=== PATIENT | male | born 1990 | race African-American/Black ===

== ENCOUNTER 2017-08-13 08:18 | Emergency (ER) | payer SELFPAY ==
[2017-08-13] MEDS: IBUPROFEN 800 MG TABLET. PO (08:56)
[2017-08-13] MEDS: HYDROcodone/APAP 5/325MG 1 TAB TABLET PO (08:56)
== END 2017-08-13 09:34 | disposition home or self-care (01) ==
LOC: ER 08:18
DX: S39.012A Strain of muscle, fascia and tendon of lower back, initial encounter (principal); Z79.891 Long term (current) use of opiate analgesic; Z79.1 Long term (current) use of non-steroidal anti-inflammatories (NSAID); X58.XXXA Exposure to other specified factors, initial encounter; Y93.89 Activity, other specified; Y92.89 Other specified places as the place of occurrence of the external cause; Y99.8 Other external cause status
CPT/HCPCS: 72100; 99284

== ENCOUNTER 2018-01-04 11:52 | Emergency (ER) | payer SELFPAY ==
[~2018-01-04] VITALS: Ht 185.4 cm; Wt 86.2 kg
[~2018-01-04 11:52] MED LIST: HYDR-971 PO; IBUP-1060 PO
[2018-01-04 12:25] VITALS: BP 121/75
[2018-01-04] MEDS ORDERED: LIDOCAINE 1% PF 2 ML VIAL. ONE (13:52)
--- NOTE | 2018-01-04 14:54 | PHYS DOC ---
Past Medical History Past Medical History: No Pertinent History Past Surgical History: No Surgical History Alcohol Use: Occasionally Drug Use: None Adult General Chief Complaint Chief Complaint: LACERATION/AVULSION HPI HPI Patient is a 27 year old AA male who presents to the ER with complaints of a laceration between his first and second digits of his right hand from a piece of metal he was trying to bend. PT denies any pain, numbness, tingling, weakness , or decreased ROM of affected fingers. PT states his last tetanus was less than 5 years ago. Review of Systems Review of Systems Musculoskeletal: Denies joint pain [] Integument: Denies rash Reports R hand laceration Neurologic: Denies headache, focal weakness or sensory changes [] All other systems were reviewed and found to be within normal limits, except as documented in this note. Current Medications Current Medications Current Medications Medications (Trade) Dose Ordered Sig/Thelma Start Time Stop Time Status Last Admin Dose Admin Lidocaine HCl (Xylocaine-Mpf 1% 2ml Vial) 4 ml 1X ONCE 01/04/18 15:00 01/04/18 15:01 DC 01/04/18 15:00 4 ML Neomycin/ Polymyxin/ Bacitracin (Triple Antibiotic Ointment) 1 pkt 1X ONCE 01/04/18 15:00 01/04/18 15:01 DC 01/04/18 15:00 1 PKT Allergies Allergies Allergies Coded Allergies Type Severity Reaction Last Updated Verified No Known Drug Allergies 11/25/14 No Physical Exam Physical Exam Constitutional: Well developed, well nourished, no acute distress, non-toxic appearance. [] HENT: Normocephalic, atraumatic, bilateral external ears normal, oropharynx moist, no oral exudates, nose normal. [] Eyes: conjunctiva normal, no discharge. [] Skin: Warm, dry, no erythema, no rash; 3 cm laceration noted between 1st and 2nd digits of right hand, no active bleeding] Extremities: No bony tenderness, no cyanosis, no clubbing, ROM intact, no edema. [] Neurologic: Alert and oriented X 3, normal motor function, normal sensory function, no focal deficits noted. [] Psychologic: Affect normal, judgement normal, mood normal. [] Current Patient Data Vital Signs Vital Signs Date Time Temp Pulse Resp B/P (MAP) Pulse Ox O2 Delivery O2 Flow Rate FiO2 01/04/18 12:25 98.5 74 18 121/75 (90) 100 Room Air 98.5 EKG EKG [] Radiology/Procedures Radiology/Procedures Laceration Repair by me: Anesthesia: 1% lidocaine locally 4 ml to R hand Location: R hand Tendon/Joint/Nerves: No injury Foreign body: None detected after copious irrigation and exploration Technique: 13 Simple Interrupted Sutures with 4-0 Ethilon use Complexity: No subcutaneous sutures/mucosal repair/edge excision Post Closure Length: 3 cm Patient's bleeding was easily controlled in the department and there is no indication of anemia. No evidence of compartment syndrome, neurologic injury, vascular injury, open joint, tendon laceration, or foreign body. Patient is appropriate for outpatient follow up. Course & Med Decision Making Course & Med Decision Making Pertinent Labs and Imaging studies reviewed. (See chart for details) Right hand laceration Wound was repaired as reported above. Patient was informed to have the sutures removed in 10 days. A thumb spica splint was applied patient encouraged to wear splint until sutures are removed. May take Tylenol or ibuprofen as needed for pain. Patient verbalized an understanding of home care, medications, follow-up, and return to ED instructions and was in agreement with the plan of care. [] Staff Physician Addendum: I was working in the ER during the course of this patient's visit. I was available for consultation as needed, but I was not directly involved in the care of this patient. Dragon Disclaimer Dragon Disclaimer This electronic medical record was generated, in whole or in part, using a voice recognition dictation system. Departure Departure Impression: Primary Impression: Laceration of hand without complication, excluding fingers Disposition: 01 HOME, SELF-CARE Condition: STABLE Referrals: NO PCP (PCP) Patient Instructions: Laceration Care, Adult, [id number] Additional Instructions: Leave the dressing that was placed in the ER in place for the next 24 hours. Then you may change the dressing twice a day and apply antibiotic ointment. Wear the splint that was applied until sutures are removed in 10 days. Follow- up with your primary care doctor or return to the emergency room for suture removal. He may take Tylenol or ibuprofen as needed for pain. Splinting Splinting : Location: R hand Pre-Made Type: Hand-Made Type: fiberglass Splint: thumb spica Pre-Proc Neuro Vasc Exam: normal Post-Proc Neuro Vasc Exam: normal, unchanged from pre-exam Progress Cap refill less than 2 seconds, pt tolerated procedure well Problem Qualifiers Primary Impression: Laceration of hand without complication, excluding fingers Encounter type: initial encounter Laterality: right Qualified Codes: S61.411A - Laceration without foreign body of right hand, initial encounter KENY MARQUES APRN Jan 04, 2018 14:54 STACEY MUÑOZ MD Jan 04, 2018 18:14
[2018-01-04] MEDS ORDERED: LIDOCAINE 1% PF 2 ML VIAL. INJ ONE (15:00)
[2018-01-04] MEDS ORDERED: NEOMY/BACITR/POLYMYXIN OINT PACKET. TP ONE (15:00)
== END 2018-01-04 15:02 | disposition home or self-care (01) ==
LOC: ER 11:52
DX: S61.411A Laceration without foreign body of right hand, initial encounter (principal); X58.XXXA Exposure to other specified factors, initial encounter; Y93.89 Activity, other specified; Y92.89 Other specified places as the place of occurrence of the external cause; Y99.8 Other external cause status
CPT/HCPCS: 12001; 12002; 99283

== ENCOUNTER 2018-01-16 14:00 | Emergency (ER) | payer SELFPAY ==
[~2018-01-16] VITALS: Ht 185.4 cm; Wt 81.6 kg
[2018-01-16 14:34] VITALS: BP 107/58
--- NOTE | 2018-01-16 14:55 | PHYS DOC ---
Past Medical History Past Medical History: No Pertinent History Past Surgical History: No Surgical History Additional Information: 8 cigarettes daily Alcohol Use: Heavy Additional Information: 1-2 24 ounce beers daily Drug Use: None Adult General Chief Complaint Chief Complaint: SUTURE/STAPLE REMOVAL HPI HPI 27-year-old male returns to ER for suture removal. Patient was in the ER and had 11 sutures placed in his right hand between the index finger and thumb. Patient denies any fever, numbness or tingling, or skin discoloration. Pt denies any drainage or bleeding from lac site. Review of Systems Review of Systems Constitutional: Denies fever or chills [] Cardiovascular: No additional information not addressed in HPI [] Musculoskeletal: Denies joint pain [] Integument: Ports healing laceration right hand. Denies swelling, drainage, or redness Neurologic: Denies numbness or tingling All other systems were reviewed and found to be within normal limits, except as documented in this note. Allergies Allergies Allergies Coded Allergies Type Severity Reaction Last Updated Verified No Known Drug Allergies 11/25/14 No Physical Exam Physical Exam Constitutional: Well developed, well nourished, no acute distress, non-toxic appearance. [] Cardiovascular:Heart rate regular Lungs & Thorax: S patient's equal and nonlabored Skin: Warm, dry, no erythema, no rash. [] Extremities: Mild tenderness on palp. rt hand lac site with sutures intact between rt thumb/index finger extending from dorsal to palm surface in webbing of fingers- wound is well healing with no erythema, swelling, or drainage at site, no cyanosis, no clubbing, ROM intact, no edema. Capillary refill brisk in all fingers. Flexor tendon intact against resistance in all fingers. Neurologic: Alert and oriented X 3, normal motor function, normal sensory function, no focal deficits noted. [] Psychologic: Affect normal, judgement normal, mood normal. [] Current Patient Data Vital Signs Vital Signs Date Time Temp Pulse Resp B/P (MAP) Pulse Ox O2 Delivery O2 Flow Rate FiO2 01/16/18 14:34 97.3 67 18 107/58 (74) 98 Room Air 97.3 EKG EKG [] Radiology/Procedures Radiology/Procedures [] Course & Med Decision Making Course & Med Decision Making Patient return to ER for suture removal of a wound he had repaired on 01/04/18 in the ER. Is well healing with no signs of infection. Patient advised on home wound care and continued monitoring of signs and symptoms of infection. Patient remained neuro and vascular intact in right upper extremity. Patient had no bleeding at time of discharge. Education provided on signs and symptoms to return to ER for an discharge instructions were discussed. Will have dressing applied to wound site- will provide aluminum splint with education to wear splint x2-3 days for wound support while at work-educated on removal of splint to perform range of motion and continued monitoring of skin condition. Staff Physician Addendum: I was working in the ER during the course of this patient's visit. I was available for consultation as needed, but I was not directly involved in the care of this patient. Dragon Disclaimer Dragon Disclaimer This electronic medical record was generated, in whole or in part, using a voice recognition dictation system. Departure Departure Impression: Primary Impression: Visit for suture removal Disposition: 01 HOME, SELF-CARE Condition: STABLE Referrals: NO PCP (PCP) Patient Instructions: Suture Removal Additional Instructions: Continue monitoring of wound for signs of infection. You can apply thin layer of triple antibiotic ointment to wound. With any concerns for infection and follow up with primary care physician or return to ER. REY ALEMAN APRN Jan 16, 2018 14:55 STACEY MUÑOZ MD Jan 20, 2018 18:25
== END 2018-01-16 15:00 | disposition home or self-care (01) ==
LOC: ER 14:00
DX: S61.411D Laceration without foreign body of right hand, subsequent encounter (principal); F10.20 Alcohol dependence, uncomplicated; F17.210 Nicotine dependence, cigarettes, uncomplicated; Y90.9 Presence of alcohol in blood, level not specified; X58.XXXD Exposure to other specified factors, subsequent encounter
CPT/HCPCS: 99281

== ENCOUNTER 2020-10-05 21:48 | Emergency (ER) | payer SELFPAY ==
[~2020-10-05 21:48] MED LIST changes: +HYDR-3164 PO; -HYDR-971 PO
[2020-10-05] MEDS ORDERED: ONDANSETRON PF 4 MG/2 ML VIAL. ONE (21:58)
[2020-10-05] MEDS ORDERED: fentaNYL PF VIAL 100 MCG/2 ML VIAL ONE (21:59)
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
[2020-10-05 22:24] LABS: CALCIUM 8.9 mg/dL (8.5-10.1); CREATININE 1.1 mg/dL (0.7-1.3); GFR 94.5; POTASSIUM 3.1 mmol/L (3.5-5.1)
[2020-10-05 22:25] LABS: BASO % 0 % (0-3); EOS # 0.4 x10^3/uL (0.0-0.7); EOS % 3 % (0-3); HEMATOCRIT 41.8 % (39.0-53.0); LYMPH # 5.3 x10^3/uL (1.0-4.8); LYMPH % 40 % (24-48); MEAN CORPUSCULAR HEMOGLOBIN 29 pg (25-35); MEAN CORPUSCULAR HGB CONC 34 g/dL (31-37); MEAN CORPUSCULAR VOLUME 85 fL (79-100); MONO # 1.3 x10^3/uL (0.0-1.1); MONO % 10 % (0-9); NEUT % 46 % (31-73); PLATELET COUNT 243 x10^3/uL (140-400); PROTHROMBIN TIME PATIENT 12.3 SEC (11.7-14.0); RED BLOOD COUNT 4.89 x10^6/uL (4.30-5.70); RED CELL DISTRIBUTION WIDTH 15.1 % (11.5-14.5); WHITE BLOOD COUNT 13.1 x10^3/uL (4.0-11.0)
[2020-10-05 22:30] LABS: ALBUMIN 3.6 g/dL (3.4-5.0); TOTAL BILIRUBIN 0.2 mg/dL (0.2-1.0); TOTAL PROTEIN 7.1 g/dL (6.4-8.2)
[2020-10-05] MEDS ORDERED: fentaNYL PF VIAL 100 MCG/2 ML VIAL IVP ONE (22:30)
[2020-10-05] MEDS ORDERED: ONDANSETRON PF 4 MG/2 ML VIAL. IVP ONE (22:30)
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
[2020-10-05] MEDS ORDERED: CONTRAST GIVEN. MC PRN (22:45)
[2020-10-05] MEDS ORDERED: IOHEXOL 350 MG/ML 100 ML VIAL. IV ONE (23:00)
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
[2020-10-05] MEDS ORDERED: MORPHINE SULFATE 4 MG/ML INJ. IV ONE (23:30)
[2020-10-05] MEDS ORDERED: IV NORMAL SALINE 1000ML BAG 1,000 ML IV ONE ×2 (23:30)
[2020-10-05 23:40] LABS: BILIRUBIN,URINE NEGATIVE (NEG); CLARITY,URINE CLEAR; NITRITE,URINE NEGATIVE (NEG); PH,URINE 5.5 (<5.0-8.0); PROTEIN,URINE NEGATIVE (NEG-TRACE); UROBILINOGEN,URINE 0.2 mg/dL (0.2 mg/dL)
[2020-10-05 23:46] LABS: BARBITURATES NEG (NEG); BENZODIAZEPINES NEG (NEG); CANNABINOIDS POS (NEG); COCAINE NEG (NEG); METHADONE NEG (NEG); OPIATES POS (NEG); PHENCYCLIDINE NEG (NEG)
[2020-10-05 23:47] LABS: BACTERIA,URINE 0 /HPF (0-FEW); COLOR,URINE YELLOW; RBC,URINE 0 /HPF (0-2)
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
[2020-10-05 23:48] LABS: AMPHETAMINE/METHAMPHETAMINE NEG (NEG)
[2020-10-06] MEDS ORDERED: CEPH500C PO (00:31)
[2020-10-06] MEDS ORDERED: TRAM50TA PO (00:31)
== END 2020-10-06 00:50 | disposition home or self-care (01) ==
LOC: EEVIPCON 21:48 → ER 21:48
DX: S71.131A Puncture wound without foreign body, right thigh, initial encounter (principal); S61.432A Puncture wound without foreign body of left hand, initial encounter; S81.031A Puncture wound without foreign body, right knee, initial encounter; F17.200 Nicotine dependence, unspecified, uncomplicated; F10.20 Alcohol dependence, uncomplicated; Y90.9 Presence of alcohol in blood, level not specified; W34.09XA Accidental discharge from other specified firearms, initial encounter; Y93.89 Activity, other specified; Y92.89 Other specified places as the place of occurrence of the external cause; Y99.8 Other external cause status
CPT/HCPCS: 36415; 70450; 72125; 73130; 73562; 73706; 80053; 80307; 81001; 85025; 85610; 85730; 86850; 86900; 86901; 87086; 96365; 96375; 99285; G0480; J0690; J2270; J2405; J3010; J7030; Q9967

== ENCOUNTER 2020-12-29 08:25 | Emergency (ER) | payer SELFPAY ==
[~2020-12-29] VITALS: Ht 185.4 cm; Wt 104.7 kg
[~2020-12-29 08:25] MED LIST changes: +CEPH500C PO; +TRAM50TA PO
[2020-12-29 09:45] VITALS: BP 143/93
[2020-12-29] MEDS ORDERED: BACITRACIN TOPICAL OINT PACKET. TP ONE (10:30)
[2020-12-29] MEDS ORDERED: DOXY100C3 PO (10:41)
[2020-12-29] MEDS ORDERED: TRAM50TA PO ×2 (10:41→10:43)
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
== END 2020-12-29 11:28 | disposition home or self-care (01) ==
LOC: ER 08:25
DX: S81.812S Laceration without foreign body, left lower leg, sequela (principal); L08.9 Local infection of the skin and subcutaneous tissue, unspecified; F17.200 Nicotine dependence, unspecified, uncomplicated; Y28 Contact with sharp object, undetermined intent
CPT/HCPCS: 99283